=== PATIENT | male | born 1935 | race Caucasian/White ===

== ENCOUNTER 2019-01-27 09:52 | Inpatient (IN) | payer MEDICARE, OTHER ==
[2019-01-27] VITALS (12 sets, daily range): BP systolic 101–125; BP diastolic 50–70
[~2019-01-27] VITALS: Ht 175.3 cm; Wt 87.7 kg
[~2019-01-27 09:52] MED LIST: AMLO-150 PO; ASPI-496 PO; ATEN50TA41 PO; CALC0.25 PO; CALC667C3 PO; CHOL100011 PO; CHOL100012 PO; CLON0.1T22 PO; GLIP5TAB10 PO; HYDR-3342 PO; LOVA40TA2 PO; MULT-642 PO; SODI650T PO; clonidine PO; multivitamin
[2019-01-27] MEDS ORDERED: PANTOPRAZOLE 80 MG in SODIUM CHLORIDE 0.9% 50 ML IVPB ONE (10:27)
[2019-01-27] MEDS ORDERED: SODIUM CHLORIDE FLUSH 10ML SYR IVF ONE (10:30)
[2019-01-27] MEDS ORDERED: SODIUM CHLORIDE 0.9% 1,000ML IVBOLUS ONE (11:00)
[2019-01-27] MEDS ORDERED: TRAM50TA2 PO (11:02)
[2019-01-27] MEDS ORDERED: FURO-93 PO (11:02)
[2019-01-27 11:11] LABS: MEAN CORPUSCULAR HEMOGLOBIN 30.4 pg (27.5-34.5); MEAN CORPUSCULAR HGB CONC 32.9 g/dL (33.2-36.2); MEAN CORPUSCULAR VOLUME 92.4 fL (81-97); MEAN PLATELET VOLUME 6.7 fL (7.4-10.4); PLATELET COUNT 401 x10^3/uL (130-400); RED BLOOD COUNT 2.07 x10^6/uL (4.38-5.82); RED CELL DISTRIBUTION WIDTH 14.8 % (9.4-14.8)
[2019-01-27 11:15] LABS: ALANINE AMINOTRANSFERASE 12 U/L (12-78); ALBUMIN 2.4 g/dL (3.4-5.0); ANION GAP 7 mmol/L (5-15); CALCIUM 8.9 mg/dL (8.5-10.1); CHLORIDE 100 mmol/L (98-107); CREATININE 4.27 mg/dL (0.7-1.3)
[2019-01-27 11:18] LABS: ALKALINE PHOSPHATASE 81 U/L (45-117); BILIRUBIN,TOTAL 0.3 mg/dL (0.2-1.0); TOTAL PROTEIN 6.7 g/dL (6.4-8.2)
[2019-01-27] MEDS ORDERED: PANTOPRAZOLE 80 MG in SODIUM CHLORIDE 0.9% 100 ML IV SCH (11:26)
[2019-01-27 11:30] LABS: BASOPHILS # (AUTO) 0.02 x10^3/uL (0-0.1); BASOPHILS % (AUTO) 0 % (0-1); EOSINOPHILS # (AUTO) 0.03 x10^3/uL (0-0.4); EOSINOPHILS % (AUTO) 0 % (1-7); INTERNATIONAL NORMALIZED RATIO 1.01 (0.93-1.1); LYMPHOCYTES # (AUTO) 0.76 x10^3/uL (1-3.4); LYMPHOCYTES % (AUTO) 8 % (22-44); MD SCAN; MONOCYTES # (AUTO) 0.37 x10^3/uL (0.2-0.8); MONOCYTES % (AUTO) 4 % (2-9); NEUTROPHILS # (AUTO) 8.34 x10^3/uL (1.8-6.8); NEUTROPHILS % (AUTO) 88 % (42-75); PROTHROMBIN TIME 10.6 Seconds (9.6-11.5)
--- NOTE | 2019-01-27 12:14 | NUR ---
dr acosta spoke with dr vela
[2019-01-27] MEDS ORDERED: ONDANSETRON ODT 4 MG PO PRN (13:00)
[2019-01-27] MEDS ORDERED: ONDANSETRON 2MG/ML, 2ML IVPush PRN (13:00)
[2019-01-27] MEDS ORDERED: LABETALOL 5 MG/ML SYRINGE IVPush PRN (13:00)
[2019-01-27] MEDS ORDERED: POLYETHYLENE GLYCOL 17 GM PACKET PO PRN (13:00)
[2019-01-27 18:29] LABS: CREATININE,URINE RANDOM 65.9 mg/dL
[2019-01-27] MEDS: PANTOPRAZOLE 80 MG in SODIUM CHLORIDE 0.9% 100 ML IV SCH (21:40)
[2019-01-28] VITALS (7 sets, daily range): BP systolic 100–132; BP diastolic 53–71
[2019-01-28 00:55] LABS: MICROSCOPIC AUTO
[2019-01-28 01:02] LABS: CULTURE INDICATED? YES
[2019-01-28 06:53] LABS: MEAN CORPUSCULAR HEMOGLOBIN 30.6 pg (27.5-34.5); MEAN CORPUSCULAR HGB CONC 33.2 g/dL (33.2-36.2); MEAN CORPUSCULAR VOLUME 92.3 fL (81-97); MEAN PLATELET VOLUME 6.6 fL (7.4-10.4); PLATELET COUNT 316 x10^3/uL (130-400); RED BLOOD COUNT 2.35 x10^6/uL (4.38-5.82); RED CELL DISTRIBUTION WIDTH 14.6 % (9.4-14.8)
[2019-01-28 07:01] LABS: ALANINE AMINOTRANSFERASE 9 U/L (12-78); ALBUMIN 2.2 g/dL (3.4-5.0); ANION GAP 8 mmol/L (5-15); CALCIUM 8.3 mg/dL (8.5-10.1); CHLORIDE 105 mmol/L (98-107); CHOLESTEROL, TOTAL 149 mg/dL (140-239); CREATININE 5.03 mg/dL (0.7-1.3)
[2019-01-28 07:10] LABS: ALKALINE PHOSPHATASE 66 U/L (45-117); BILIRUBIN,TOTAL 0.5 mg/dL (0.2-1.0); HDL CHOL % 25 % (26-37); HDL CHOLESTEROL (DIRECT) 37 mg/dL (40-60); LDL CHOLESTEROL,CALCULATED 87 mg/dL (54-169); LDL/HDL RATIO 2.4 (0.5-3.0); TOTAL PROTEIN 5.6 g/dL (6.4-8.2); TRIGLYCERIDES 127 mg/dL (50-200); VLDL CHOLESTEROL 25 mg/dL (0-25)
[2019-01-28 07:18] LABS: BASOPHILS # (AUTO) 0.02 x10^3/uL (0-0.1); BASOPHILS % (AUTO) 0 % (0-1); EOSINOPHILS # (AUTO) 0.13 x10^3/uL (0-0.4); EOSINOPHILS % (AUTO) 2 % (1-7); LYMPHOCYTES # (AUTO) 1.43 x10^3/uL (1-3.4); LYMPHOCYTES % (AUTO) 18 % (22-44); MD SCAN; MONOCYTES # (AUTO) 0.47 x10^3/uL (0.2-0.8); MONOCYTES % (AUTO) 6 % (2-9); NEUTROPHILS # (AUTO) 5.98 x10^3/uL (1.8-6.8); NEUTROPHILS % (AUTO) 75 % (42-75)
[2019-01-28] MEDS: PANTOPRAZOLE 80 MG in SODIUM CHLORIDE 0.9% 100 ML IV SCH ×2 (07:58→18:36)
[2019-01-28] MEDS: CHOLECALCIFEROL 1,000 UNIT TABLET PO SCH (07:58)
[2019-01-28] MEDS: SENNA/DOCUSATE TABLET PO SCH (07:58)
[2019-01-28] MEDS ORDERED: DEXTROSE 50%, 50ML SYRINGE IVPush PRN (11:30)
[2019-01-28] MEDS ORDERED: DEXTROSE 4 GM TAB.CHEW PO PRN (11:30)
[2019-01-28] MEDS ORDERED: ARANESP 100 MCG/ML **ESRD SQ SCH (12:00)
[2019-01-28] MEDS ORDERED: PROPOFOL 10 MG/ML, 20ML ONE (12:22)
[2019-01-28] MEDS ORDERED: ACETAMINOPHEN 325 MG TABLET PO PRN (12:30)
[2019-01-28] MEDS ORDERED: MIDAZOLAM 1 MG/ML, 2ML IV PRN (12:30)
[2019-01-28] MEDS ORDERED: ONDANSETRON 2MG/ML, 2ML IV PRN (12:30)
[2019-01-28] MEDS ORDERED: hydrALAzine 20 MG/ML, 1ML IV PRN (12:30)
[2019-01-28] MEDS ORDERED: PROMETHAZINE 25 MG/ML, 1ML IV PRN (12:30)
[2019-01-28] MEDS ORDERED: FENTANYL PF 100 MCG/2ML ONE (13:14)
[2019-01-28] MEDS: FENTANYL PF 100 MCG/2ML IV PRN ×2 (13:16→13:29)
[2019-01-28] MEDS ORDERED: EPINEPHRINE SYRINGE 0.1 MG/ML, 10ML ONE (15:14)
[2019-01-28] MEDS: SUCRALFATE 1 GM TABLET PO SCH (20:59)
[2019-01-29] VITALS (7 sets, daily range): BP systolic 106–129; BP diastolic 58–69
[2019-01-29] MEDS: PANTOPRAZOLE 80 MG in SODIUM CHLORIDE 0.9% 100 ML IV SCH ×2 (04:38→16:46)
[2019-01-29 07:11] LABS: ANION GAP 8 mmol/L (5-15); CALCIUM 8.3 mg/dL (8.5-10.1); CHLORIDE 106 mmol/L (98-107)
[2019-01-29 07:13] LABS: CREATININE 5.48 mg/dL (0.7-1.3)
[2019-01-29] MEDS: SUCRALFATE 1 GM TABLET PO SCH ×4 (07:45→20:52)
[2019-01-29] MEDS: CHOLECALCIFEROL 1,000 UNIT TABLET PO SCH (07:45)
[2019-01-29] MEDS: SENNA/DOCUSATE TABLET PO SCH (07:46)
[2019-01-30 01:13] VITALS: BP 130/66
[2019-01-30] MEDS: PANTOPRAZOLE 80 MG in SODIUM CHLORIDE 0.9% 100 ML IV SCH ×2 (02:43→12:30)
[2019-01-30 08:01] VITALS: BP 131/70
[2019-01-30] MEDS: SUCRALFATE 1 GM TABLET PO SCH ×3 (08:25→16:42)
[2019-01-30] MEDS: SENNA/DOCUSATE TABLET PO SCH (08:25)
[2019-01-30] MEDS: CHOLECALCIFEROL 1,000 UNIT TABLET PO SCH (08:25)
[2019-01-30] MEDS ORDERED: SUCR1TAB33 PO (13:27)
[2019-01-30] MEDS ORDERED: PANT40TA3 PO (13:27)
== END 2019-01-30 18:45 | disposition home health service (06) | DRG 377 ==
LOC: ED 10:50 → EDIP 11:37 → 4EST 12:43
PROVIDERS: ADMIT Hospitalist; ATTEND Hospitalist
PROC: 30233N1 Transfusion of Nonautologous Red Blood Cells into Peripheral Vein, Percutaneous Approach (ICD-10-PCS; 2019-01-27)
PROC: 0DB68ZX Excision of Stomach, Via Natural or Artificial Opening Endoscopic, Diagnostic (ICD-10-PCS; 2019-01-28)
PROC: 0W3P8ZZ Control Bleeding in Gastrointestinal Tract, Via Natural or Artificial Opening Endoscopic (ICD-10-PCS; principal; 2019-01-28 13:00)
PROC: 5A1D70Z Performance of Urinary Filtration, Intermittent, Less than 6 Hours Per Day (ICD-10-PCS; 2019-01-29)
DX: K25.4 Chronic or unspecified gastric ulcer with hemorrhage (principal); N18.6 End stage renal disease; D62 Acute posthemorrhagic anemia; D63.8 Anemia in other chronic diseases classified elsewhere; E11.22 Type 2 diabetes mellitus with diabetic chronic kidney disease; E87.70 Fluid overload, unspecified; K22.8 Other specified diseases of esophagus; B95.1 Streptococcus, group B, as the cause of diseases classified elsewhere; Z99.2 Dependence on renal dialysis; Z87.81 Personal history of (healed) traumatic fracture; Z90.49 Acquired absence of other specified parts of digestive tract; Z79.899 Other long term (current) drug therapy; Z79.82 Long term (current) use of aspirin
CPT/HCPCS: 36415; 36430; 76770; 80053; 80061; 80069; 81001; 82570; 82962; 83735; 84100; 84300; 84439; 84443; 85014; 85018; 85025; 85610; 85730; 86705; 86706; 86803; 86850; 86900; 86923; 87086; 87147; 87340; 88305; 93005; 96374; 99291; G0378; J0882; J2704; J3010; C9113; J7030; P9016